=== PATIENT | female | born 1970 | race Caucasian/White ===

== ENCOUNTER 2016-09-04 12:32 | Emergency (ER) | payer OTHER ==
[~2016-09-04] VITALS: Ht 170.2 cm; Wt 93.0 kg
[~2016-09-04 12:32] MED LIST: DURICEF500 MG PO; FLEXERIL10 MG PO; NAPROSYN 500 M500 MG PO; OXYCODONE5 M1 PO; TYLENOL #31 TAB PO
--- NOTE | 2016-09-04 13:03 | ED INFLUENZA/URI COMPLAINT ---
History of Present Illness General Chief Complaint: General Adult Stated Complaint: SENT BY PCP FOR XRAYS ?PNEU Source: patient, old records Exam Limitations: no limitations Vital Signs & Intake/Output Vital Signs & Intake/Output Vital Signs Date Time Temp Pulse Resp B/P Pulse O2 O2 Flow FiO2 Ox Delivery Rate 09/04 1435 86 18 120/61 97 Room Air 09/04 1242 98.1 93 16 143/79 99 Room Air Room Air Allergies Coded Allergies: NO KNOWN ALLERGIES (09/04/16) Reconcile Medications Benzonatate (Tessalon Perle) 100 MG CAPSULE 1 CAP PO TID PRN cough Levothyroxine Sodium 88 MCG TABLET 1 TAB PO DAILY AC THYROID (Reported) Methylprednisolone. (Medrol) 4 MG TAB.DS.PK 1 DP PO AD reactive airway 6 on day 1 then reduce by one tablet daily until gone Triage Note: TRIAGE: 46 Y/O FEMALE PRESENTS REQUESTING CHEST XRAY FROM PCP SECONDARY TO INCREASED COUGH AND WEAKNESS SINCE TUESDAY. PER PCP HAND WRITTEN NOTE, ON "COUGH MEDS, Z PACK, AND ROBITUSSIN." SPO2 99% TEMP 98.1 IN TRIAGE. Triage Nurses Notes Reviewed? yes Onset: Abrupt Duration: day(s): (4), constant Timing: recent history Severity: moderate Severity Numbers: 7 No Modifying Factors: none Associated Symptoms: cough, earache, muscle aches HPI: 46-year-old female with no medical history presents to emergency room today for evaluation complaining of a persistent nonproductive cough for the past 4 days. The patient was started on a Z-Esvin and Robitussin with codeine earlier this week without improvement in her symptoms and was sent to the ER for evaluation and a chest x-ray to rule out pneumonia. 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 She denies history of asthma or COPD no shortness of breath chest pain abdominal pain nausea vomiting or diarrhea. Patient reports a sore throat bilateral ear pain from her coughing no recent travel she denies any other modifying factors or associated symptoms otherwise she does not smoke. (PANKAJ PATEL) Past History Travel History Traveled to [place] past 21 day No Medical History Any Pertinent Medical History? see below for history Neurological: migraine EENT: NONE Cardiovascular: NONE Respiratory: bronchitis Gastrointestinal: NONE Hepatic: NONE Renal: NONE Musculoskeletal: NONE Psychiatric: NONE Endocrine: hypothyroidism Blood Disorders: NONE Cancer(s): NONE C[employer] SPECIAL[employer] FORE[employer] FOOD/Reproductive: NONE Surgical History Surgical History: NONE Psychosocial History What is your primary language German Tobacco Use: Never used ETOH Use: occasional use Illicit Drug Use: denies illicit drug use Family History Hx Contributory? No (PANKAJ PATEL) Review of Systems Review of Systems Constitutional: Reports: see HPI. All Other Systems: Reviewed and Negative Comments Review of systems: See HPI, All other systems negative. Constitutional, no chills no fever, no malaise no weight loss HEENT: No visual changes sore throat no congestion, ear pain Cardiovascular: No chest pain , no palpitation , no orthopnea no ankle swelling Skin, no rashes, no change in skin Respiratory: No dyspnea cough no sputum no hemoptysis GI: No nausea no vomiting, no diarrhea : No dysuria Muscle skeletal: No joint pain, no joint swelling, no back pain, no neck pain, Neurologic: No numbness no confusion, no headache Psych: No stress Heme/endocrine: No bruising no bleeding Immunology: No lymphadenopathy (PANKAJ PATEL) Physical Exam Physical Exam General Appearance: well developed/nourished, alert, awake Ears, Nose, Throat: normal ENT inspection, moist mucous membrane, hearing grossly normal, Tympanic normal, pharynx normal Comments: Well-developed well-nourished patient in no apparent distress. Head/Face: Atraumatic, no maxillary/frontal sinus tenderness, no facial swelling Eyes: PERRL, EOMI, no conjunctival injection. No nystagmus Ear:External auditory canal and Tympanic membranes clear, no erythema, no FB. Nose: atraumatic.Normal inspection: No bleeding, no septal hematoma Throat: Moist mucous membranes.Pharynx normal. No pharyngeal erythema/exudate seen. No stridor/drooling or assymetry. No swelling or edema. Neck: Supple, no lymphadenopathy, FROM Back: FROM, Nontender Cardiovascular: Regular rate and rhythms no murmurs rubs or gallops, Respiratory: Chest nontender.There were no bony deformities, no asymmetry. No respiratory distress. Patient speaking in full complete sentences. Breath sounds clear to auscultation bilaterally: NO W/R/R Extremities: full range of motion Neuro: Alert and oriented x3 Skin: Warm & dry;No appreciable rash on exposed skin Psych: Mood affect normal, normal memory normal judgment. Core Measures Severe Sepsis Present: No Septic Shock Present: No (PANKAJ PATEL) Progress Differential Diagnosis: influenza, otitis, pneumonia, pharyngitis, sinusitis, bronchitis Plan of Care: Current Medications Sig/Tobin Start time Last Medication Dose Stop Time Status Admin Prednisone 60 MG ONCE ONE 09/04 1430 AC 09/04 143 X-ray ordered patient speaking in full complete sentences appears in no respiratory distress Discussed with patient her x-ray results need for supportive care to finished a course of azithromycin she's currently on. Tesyrn Puckettes Medrol Dosepak provided I answered all their questions she feels comfortable with plan cleared for discharge (PANKAJ PATEL) Diagnostic Imaging: Viewed by Me: Radiology Read. Discussed w/RAD: Radiology Read. Radiology Impression: PATIENT: ELROY ZAMARRIPA PRESENT AGE: 46 PATIENT ACCOUNT NO: [id number] : 69 LOCATION: [facility], [place] ORDERING PHYSICIAN: PANKAJ LOPES SERVICE DATE: 09/04/16-1254 EXAM TYPE: RAD - XRY -CHEST XRAY, PA AND LATERAL EXAMINATION: XR CHEST CLINICAL INFORMATION: Cough. Pneumonia. COMPARISON: None. TECHNIQUE: PA and lateral views of the chest were obtained. FINDINGS: Evaluation of the lateral view is limited by some motion artifact. The cardiomediastinal silhouette is within normal limits in size. Lungs bilaterally are symmetrically hyperexpanded with slight thickening of the central airways seen, suggestive of reactive airways disease or bronchitis. No focal consolidation. No effusion or pneumothorax is seen. Mild vertebral spondylosis seen in lower thoracic spine. IMPRESSION: 1. Thickened central airways, suggestive of reactive airways disease or bronchitis. 2. Low lung volumes. 3. No focal pneumonia. DICTATED BY: LIZZY ORDAZ MD DATE/TIME DICTATED:09/04/161415 BANKRUPTCY MANAGER:ANNALISA DATE/TIME TRANSCRIBED:1415 CONFIDENTIAL, DO NOT COPY WITHOUT APPROPRIATE AUTHORIZATION. < Electronically signed in Other Vendor System> SIGNED BY: LIZZY ORDAZ MD 09/04/161419 Initial ED EKG: none (PANKAJ PATEL) Departure Departure Time of Disposition: 1420 Disposition: HOME OR SELF CARE Condition: Stable Clinical Impression Primary Impression: Bronchitis Referrals: DAWOOD FAGAN,DAVINA (PCP/Family) Additional Instructions: Follow-up with your primary care physician on Tuesday. Ivaniasalon Perlseema for cough , Medrol Dosepak as directed and given today's dose begin this prescription tomorrow. These prescriptions were sent to your pharmacy. Continue with the Robitussin with codeine that you have at home for cough and finished a course of azithromycin. Tylenol or Motrin as needed for. Return at anytime sooner with any concerns Departure Forms: Customer Survey General Discharge Information Prescriptions: Current Visit Scripts Methylprednisolone. (Medrol) 1 DP PO AD #1 DP 6 on day 1 then reduce by one tablet daily until gone Benzonatate (Tessalon Perle) 1 CAP PO TID PRN cough #30 CAP (PANKAJ PATEL) PA/SEXUAL ASSAULT SOCIAL WORKER Co-Sign Statement Statement: ED Attending supervision documentation- [] I saw and evaluated the patient. I have also reviewed all the pertinent lab results and diagnostic results. I agree with the findings and the plan of care as documented in the PA's/SEXUAL ASSAULT SOCIAL WORKER's documentation. [X] I have reviewed the ED Record and agree with the PA's/SEXUAL ASSAULT SOCIAL WORKER's documentation. [] Additions or exceptions (if any) to the PAs/SEXUAL ASSAULT SOCIAL WORKER's note and plan are summarized below: [] (MARLYN FAGAN,JENNIFER Power)
[2016-09-04] MEDS ORDERED: TESSALON PERLE100 M1 PO (14:17)
[2016-09-04] MEDS ORDERED: MEDROL4 M2 PO (14:17)
--- NOTE | 2016-09-04 14:20 | RADIOLOGY REPORT ---
EXAMINATION: XR CHEST CLINICAL INFORMATION: Cough. Pneumonia. COMPARISON: None. TECHNIQUE: PA and lateral views of the chest were obtained. FINDINGS: Evaluation of the lateral view is limited by some motion artifact. The cardiomediastinal silhouette is within normal limits in size. Lungs bilaterally are symmetrically hyperexpanded with slight thickening of the central airways seen, suggestive of reactive airways disease or bronchitis. No focal consolidation. No effusion or pneumothorax is seen. Mild vertebral spondylosis seen in lower thoracic spine. IMPRESSION: 1. Thickened central airways, suggestive of reactive airways disease or bronchitis. 2. Low lung volumes. 3. No focal pneumonia.
[2016-09-04] MEDS ORDERED: LEVOTHYROXINE88 MCG PO (14:22)
[2016-09-04 14:35] VITALS: BP 120/61
== END 2016-09-04 14:37 ==
LOC: ERH 12:32
DX: J40 Bronchitis, not specified as acute or chronic (principal)